=== PATIENT | male | born 1990 | race Two or more races ===

== ENCOUNTER 2016-07-28 14:58 | Emergency (ER) | payer MEDICAID ==
[~2016-07-28] VITALS: Ht 170.2 cm; Wt 83.9 kg
[2016-07-28 15:13] VITALS: BP 133/94
== END 2016-07-29 03:15 | disposition left against medical advice (07) ==
LOC: ER 15:02
DX: F41.9 Anxiety disorder, unspecified (principal); F32.9 Major depressive disorder, single episode, unspecified; Z53.21 Procedure and treatment not carried out due to patient leaving prior to being seen by health care provider